=== PATIENT | male | born 1985 | race Caucasian/White ===

== ENCOUNTER 2017-05-30 14:24 | Emergency (ER) | payer OTHER ==
[~2017-05-30] VITALS: Ht 185.4 cm; Wt 84.0 kg
[2017-05-30 14:27] VITALS: TEMP 36.7; Ht 185.4 cm; Wt 84.0 kg
[2017-05-30] MEDS ORDERED: OXYC1TAB3 PO (14:50)
[2017-05-30] MEDS ORDERED: ACET-1256 PO (14:50)
[2017-05-30] MEDS ORDERED: OXYCODONE HCL IR 5 MG TAB (IMMEDIATE RELEASE) PO STA (14:55)
--- NOTE | 2017-05-30 15:03 | EMERGENCY ROOM VISIT NOTE ---
ED Visit Note First contact with patient: 14:46 CHIEF COMPLAINT: Foot pain HISTORY OF PRESENT ILLNESS: This 31-year-old male patient presents to the emergency department ambulatory complaining of swelling and pain in the right foot at rest and worse with weight bearing. The patient states that he accidentally dropped a 95 pounds cinderblock on his right foot just prior to arrival while at home. The patient rates the pain as severe and 10/10. The patient has no relief of the pain. The patient is not able to walk. No numbness or weakness. No ankle pain. There are no lacerations of the foot. The patient is able to move all of their toes and their ankle without pain. Patient denies previous injury to this foot. REVIEW OF SYSTEMS: GENERAL: A 6 system review of systems was completed with positives and pertinent negatives in the HPI. ALLERGIES: Penicillin MEDICATIONS: Oxycodone as needed for back pain PMH: Back pain SOCIAL HISTORY: The patient is a smoker PHYSICAL EXAM: Vital Signs: Reviewed Nurse's notes, vital signs stable. GENERAL : Is a 31-year-old male, in no acute distress, but appears in pain, well- developed, well-nourished. MUSCULOSKELETAL: There is no visual deformity of the right foot. There is minimal erythema but no ecchymosis. There is no warmth. There is tenderness and swelling over the dorsum of the right foot. The range of motion of the foot is moderately limited secondary to pain. There is no tenderness over the plantar fascia. Dorsi flexion 5/5 and Plantar flexion 5/5. The skin is intact and there are no lacerations or puncture wounds. Dorsalis pedis pulse 2+. Capillary refill less than 2 seconds. There is no ecchymosis, edema, erythema to the ankle but he does have diffuse severe tenderness over the entire ankle. EMERGENCY DEPARTMENT COURSE: I examined the patient. An X-ray of the left foot and ankle were reviewed by myself and radiology and reveals likely old avulsion from the talus but no obvious acute fracture. The patient's examination seems to be out of proportion to complaint. The patient is rolling around the bed complaining of pain. There is some redness to the dorsum of the foot but the patient has also had ice on it and it is cool to the touch. I'm not certain if the redness is secondary to the injury or from the ice pack. I recommended anti-inflammatories for the contusion. He patient states that the anti-inflammatories will not help. He was given 1 oxycodone in the emergency department. The patient requests oxycodone to get him through until June 14. He states that he takes oxycodone for his chronic back pain. He states he took his last pill yesterday. I advised the patient that we cannot prescribe narcotics for his chronic pain. I did review the prescription drug monitoring website. The patient has been regularly filling oxycodone and last filled it on May 20 day supply. I did discuss the case with the patient's family doctor, Dr. Valentin, who stated the patient missed an appointment with him yesterday. I advised him that I could give him a take-home pack of pain medication for the foot contusion but I did not feel comfortable prescribing him narcotics for a longer period of time. I did recommend that he follow up with orthopedics and potentially go to the walk-in clinic in the evening for further evaluation and management. He should return to the ER with any worsening symptoms. The case was discussed with Dr. Riojas who agrees with the assessment and treatment plan. The patient was discharged home in good condition. RIGHT ANKLE 4 VIEWS CLINICAL HISTORY: Right ankle pain. FINDINGS: 4 views of the right ankle are obtained. No prior studies are available for comparison at the time of dictation. The skeletal structures are well mineralized. There is an age-indeterminate but chronic appearing avulsion fracture seen along the lateral aspect of the talus. Overlying soft tissue edema is identified. No acute fracture is seen. The ankle mortise is intact. No joint effusion is identified. IMPRESSION: 1. No acute bony abnormality is identified in the right ankle. 2. Suspect a chronic avulsion fracture on the lateral aspect of the talus. There is no overlying soft tissue edema. R FOOT MIN 3 VIEWS ROUTINE CLINICAL HISTORY: Right foot pain status post trauma COMPARISON: None. DISCUSSION: No acute fractures or dislocations are visualized. There is no evidence for soft tissue swelling. IMPRESSION: No acute fractures or dislocations identified. Current/Historical Medications Scheduled PRN Acetaminophen (Tylenol), 1,000 MG PO DIRECTED PRN for Pain or Fever Oxycodone Ir (Roxicodone Ir), 5 MG PO Q8 PRN for Pain Allergies Coded Allergies: Penicillins (Verified Allergy, Unknown, CHILDHOOD ALLERGY, 05/30/17) Vital Signs Date Time Temp Pulse Resp B/P (MAP) Pulse Ox O2 Delivery O2 Flow Rate FiO2 05/30/17 16:34 80 16 132/65 99 05/30/17 14:27 36.7 90 17 118/71 96 Room Air Medications Administered Medications (Trade) Dose Ordered Sig/Reyes Route Start Time Stop Time Status Last Admin Dose Admin Oxycodone HCl (Roxicodone Immediate Rel Tab) 5 mg NOW STAT PO 05/30/17 14:55 05/30/17 14:56 DC 05/30/17 15:28 5 MG Departure Information Impression Primary Impression: Contusion of foot Dispostion Home / Self-Care Condition GOOD Referrals Joseph Craft M.D. (PCP) Jack Garcia M.D. Patient Instructions ED Contusion Foot, My [facility] Additional Instructions Motrin 600 mg every 6-8 hours or moderate pain Oxy IR 1-2 tablets every 4-6 hrs as needed for worse pain. No driving or alcohol use with Oxy IR. Follow-up with orthopedics. Contact their office for an appointment or try the walk-in hours in the evening. Wear the splint until seen by orthopedics. Return with any worsening symptoms. Follow up with your family doctor for continued management of your chronic back pain and pain medications as indicated Return with worsening symptoms Problem Qualifiers Primary Impression: Contusion of foot Encounter type: initial encounter
--- NOTE | 2017-05-30 15:29 | DIAGNOSTIC IMAGING REPORT ---
RIGHT ANKLE 4 VIEWS CLINICAL HISTORY: Right ankle pain. FINDINGS: 4 views of the right ankle are obtained. No prior studies are available for comparison at the time of dictation. The skeletal structures are well mineralized. There is an age-indeterminate but chronic appearing avulsion fracture seen along the lateral aspect of the talus. Overlying soft tissue edema is identified. No acute fracture is seen. The ankle mortise is intact. No joint effusion is identified. IMPRESSION: 1. No acute bony abnormality is identified in the right ankle. 2. Suspect a chronic avulsion fracture on the lateral aspect of the talus. There is no overlying soft tissue edema. Electronically signed by: Sam Kimble M.D. 05/30/2017 3:28 PM Dictated Date/Time: 05/30/2017 3:27 PM
--- NOTE | 2017-05-30 15:35 | DIAGNOSTIC IMAGING REPORT ---
R FOOT MIN 3 VIEWS ROUTINE CLINICAL HISTORY: Right foot pain status post trauma COMPARISON: None. DISCUSSION: No acute fractures or dislocations are visualized. There is no evidence for soft tissue swelling. IMPRESSION: No acute fractures or dislocations identified. Electronically signed by: Daren Green M.D. 05/30/2017 3:33 PM Dictated Date/Time: 05/30/2017 3:33 PM
[2017-05-30] MEDS ORDERED: OXYCODONE IR HOME PACK PO ONE (16:30)
[2017-05-30 16:34] VITALS: BP 132/65; PULSE 80; O2SAT 99
== END 2017-05-30 16:36 | disposition home or self-care (01) ==
LOC: C.EDB 14:26 → C.EDD 16:36
DX: S90.31XA Contusion of right foot, initial encounter (principal); W20.8XXA Other cause of strike by thrown, projected or falling object, initial encounter; Y92.009 Unspecified place in unspecified non-institutional (private) residence as the place of occurrence of the external cause; M54.9 Dorsalgia, unspecified; Z79.899 Other long term (current) drug therapy; G89.29 Other chronic pain; F17.210 Nicotine dependence, cigarettes, uncomplicated

== ENCOUNTER 2017-10-15 13:56 | Emergency (ER) | payer SELFPAY ==
[~2017-10-15] VITALS: Ht 185.4 cm; Wt 75.9 kg
[~2017-10-15 13:56] MED LIST: ACET-1256 PO; OXYC1TAB3 PO
[2017-10-15 14:02] VITALS: Ht 185.4 cm; Wt 75.9 kg
[2017-10-15 15:15] VITALS: O2SAT 99
[2017-10-15] MEDS ORDERED: MoRPHine SULFATE 10 MG/ML CARP/VIAL IV STA (15:18)
[2017-10-15] MEDS ORDERED: ONDANSETRON INJ 2 MG/ML 2 ML VIAL IV STA (15:18)
--- NOTE | 2017-10-15 15:26 | EMERGENCY ROOM VISIT NOTE ---
History Report prepared by Duane: Héctor De Leon Under the Supervision of: Dr. Casey Alonzo M.D. First contact with patient: 15:03 Chief Complaint: CHEST PAIN Stated Complaint: CHEST PAIN,LIGHT HEADED,BACK PAIN,SEIZURES,NUMB RANDOLPH Nursing Triage Summary: Pt reports, "I passed out on New Years. I've passed out a couple times in the past couple days. My whole head hurts down my spine. I have pain in my chest. I am shaky. I'm dizzy all the time. I was told I had a seizure." History of Present Illness The patient is a 31 year old male who presents to the Emergency Room with complaints of left-sided chest pain that began several weeks ago. He rates his pain a 6/10 in severity. He has a past medical history of 2 ruptured discs or which he is currently following up with orthopedics. Over this time, the patient has been experiencing intermittent episodes of syncope associated with lightheadedness and tingling to his bilateral hands/arms. He states that he passed out multiple times over the past couple of days. For the past three days , he has been experiencing a posterior headache with some posterior neck pain that radiates down his entire spine. He states that his headache and neck pain worsen with movement of his head. The only medication that he is on currently is Oxycodone for his ruptured discs. He denies any fevers. Source of History: patient Onset: several weeks ago Position: chest (left) Symptom Intensity: 6/10 Quality: sharp Associated Symptoms: + LOC, + headache, + neck pain, No fevers Note: He experiencing intermittent numbness and tingling to his fingers/arms bilaterally. Review of Systems See HPI for pertinent positives & negatives. A total of 10 systems reviewed and were otherwise negative. Past Medical & Surgical Medical Problems: (1) Intervertebral disc rupture Family History Diabetes mellitus Unable to obtain half from mother secondary to an adoption in his family. Social History Smoking Status: Current Every Day Smoker Smokeless Tobacco Use: No Marital Status: in relationship Housing Status: unknown Occupation Status: employed Current/Historical Medications Scheduled PRN Oxycodone HCl (Oxycodone HCl), 5 MG PO Q8 PRN for Pain Allergies Coded Allergies: Penicillins (Verified Allergy, Unknown, CHILDHOOD ALLERGY, 10/15/17) Physical Exam Vital Signs Date Time Temp Pulse Resp B/P (MAP) Pulse Ox O2 Delivery O2 Flow Rate FiO2 10/15/17 18:18 78 112/76 97 Room Air 10/15/17 16:44 36.8 71 18 108/70 97 Room Air 10/15/17 15:24 80 10/15/17 15:15 99 Room Air 10/15/17 15:15 99 Room Air 10/15/17 15:11 99 Room Air 10/15/17 15:09 80 119/78 87 135/93 10/15/17 14:02 36.5 109 18 129/97 97 Room Air Physical Exam GENERAL: Patient is a healthy-appearing well-nourished male, hyperventilating on exam. HEAD: Normocephalic atraumatic EYES: Ocular movements intact pupils equal and react to light OROPHARYNX mucous membranes are moist no exudates present no erythema or edema present NECK: Supple no nuchal rigidity CHEST: Good equal expansion LUNGS: Clear and equal to auscultation CARDIAC: Normal S1 and S2 ABDOMEN: Soft nontender no guarding BACK: No CVA tenderness EXTREMITIES: No pain upon palpation normal muscle strength in all groups no clubbing cyanosis or edema NEURO: Patient is following commands and answering questions appropriately. Alert and oriented x3 Cranial Nerves 2-12 grossly intact Medical Decision & Procedures ER Provider Diagnostic Interpretation: Radiology results as stated below per my review and radiologist interpretation: CHEST ONE VIEW PORTABLE CLINICAL HISTORY: Atypical chest pain. Seizures. COMPARISON STUDY: 11/11/2015 FINDINGS: The cardiac and mediastinal contours are normal. There is no evidence of focal pulmonary consolidation. There is no evidence of failure. No pleural effusions are visualized.[ There are old left-sided rib fractures. IMPRESSION: No active disease in the chest. Electronically signed by: Daren rGeen M.D. 10/15/2017 3:37 PM Dictated Date/Time: 10/15/2017 3:[address] HEAD WITHOUT CONTRAST (CT) CLINICAL HISTORY: Syncope COMPARISON STUDY: No previous studies for comparison. TECHNIQUE: Axial CT of the brain is performed from the vertex to the skull base. IV contrast was not administered for this examination. A dose lowering technique was utilized adhering to the principles of ALARA. CT DOSE: FINDINGS: No intra or extra-axial mass lesions are visualized. There is no CT evidence of acute cortical infarction. There is no evidence of midline shift. There is no acute hemorrhage. No calvarial fractures are visualized. There is no evidence of pathologic ventricular dilatation. There is no evidence of acute sinusitis IMPRESSION: Normal noncontrast head CT. Electronically signed by: Daren Green M.D. 10/15/2017 4:40 PM Dictated Date/Time: 10/15/2017 4:39 PM (CHEST FOR PE) ANGIO WITH CT DOSE: 1013.79 mGy.cm HISTORY: 31 years-old Male presents with acute atypical chest pain TECHNIQUE: Multiple CTA images of the chest were obtained after the intravenous administration of 92 ml Optiray 320. Coronal and sagittal MIPS were obtained from the axial data set and were submitted for review. A dose lowering technique was utilized adhering to the principles of ALARA. COMPARISON: Portal chest radiograph 10/15/2017. FINDINGS: CTA: Heart is normal in size without pericardial effusion. The thoracic aorta is normal in both course and caliber without aneurysm or dissection. The imaged great vessels appear to be patent. The descending thoracic aorta is not well opacified. The pulmonary arterial tree is opacified to level of the segmental branches. The subsegmental branches at the level of the lung bases are obscured secondary to respiratory motion. No filling defects identified to suggest pulmonary thromboembolic disease. CT CHEST: No dominant thyroid nodule. Mild residual thymic tissue of the anterior mediastinum. No pathologic adenopathy by CT size criteria. No pleural effusion or pneumothorax. 4 mm solid noncalcified pleural-based nodule of the apical segment right upper lobe is seen on image 289 series 6. There are a few additional scattered solid nodules measuring up to 4 mm with probable perifissural lymph node seen adjacent to the left upper lobe measuring 3 mm on image 262 series 6. Mild dependent subsegmental bibasilar atelectasis. The central airways are patent. No lobar airspace consolidation to suggest pneumonia. No acute abnormality of the imaged upper abdomen. Bones of the chest appear intact. IMPRESSION: 1. Mildly motion degraded exam without acute intrathoracic abnormality identified, specifically no acute aortic pathology or evidence of pulmonary thromboembolic disease. 2. No lobar airspace consolidation to suggest pneumonia. 3. Several scattered noncalcified pulmonary nodules are seen within the bilateral lungs measuring up to 4 mm, likely benign in a patient of this age group. Please refer to below summary of Fleischner criteria recommendations for follow-up of incidental CT nodules (H Tang, Guidelines for management of small pulmonary nodules detected on CT scans: A statement from the Fleischner Society, Radiology 237: [phone].) SOLID NODULES Multiple nodules size: <6 mm * Low risk patients: no routine follow-up * high risk patients: optional CT at 12 months Note: newly detected indeterminate nodule in persons 35 years of age or older. * Low risk patients: minimal or absent history of smoking and/or other known risk factors * high risk patients: history of smoking or of other known risk factors (e.g. first degree relative with lung cancer, or exposure to asbestos, radon, uranium) * if a nodule up to 8 mm is partly solid or is ground glass further follow-up is required after 24 months to exclude possible slow growing adenocarcinoma (STEVE) The above report was generated using voice recognition software. It may contain grammatical, syntax or spelling errors. Electronically signed by: Cedric Ford M.D. 10/15/2017 4:49 PM Dictated Date/Time: 10/15/2017 4:40 PM Laboratory Results 10/15/17 15:20 Red Blood Count 5.51, Mean Corpuscular Volume 89.1, Mean Corpuscular Hemoglobin 31.2, Mean Corpuscular Hemoglobin Concent 35.0, Mean Platelet Volume 10.5, Neutrophils (%) (Auto) 67.2, Lymphocytes (%) (Auto) 25.6, Monocytes (%) (Auto) 5.6, Eosinophils (%) (Auto) 0.8, Basophils (%) (Auto) 0.5, Neutrophils # (Auto) 8.06, Lymphocytes # (Auto) 3.07, Monocytes # (Auto) 0.67, Eosinophils # (Auto) 0.09, Basophils # (Auto) 0.06 10/15/17 15:20 Test 10/15/17 15:20 10/15/17 15:22 White Blood Count 11.98 K/uL (4.8-10.8) Red Blood Count 5.51 M/uL (4.7-6.1) Hemoglobin 17.2 g/dL (14.0-18.0) Hematocrit 49.1 % (42-52) Mean Corpuscular Volume 89.1 fL (80-100) Mean Corpuscular Hemoglobin 31.2 pg (25-34) Mean Corpuscular Hemoglobin Concent 35.0 g/dl (32-36) Platelet Count 308 K/uL (130-400) Mean Platelet Volume 10.5 fL (7.4-10.4) Neutrophils (%) (Auto) 67.2 % Lymphocytes (%) (Auto) 25.6 % Monocytes (%) (Auto) 5.6 % Eosinophils (%) (Auto) 0.8 % Basophils (%) (Auto) 0.5 % Neutrophils # (Auto) 8.06 K/uL (1.4-6.5) Lymphocytes # (Auto) 3.07 K/uL (1.2-3.4) Monocytes # (Auto) 0.67 K/uL (0.11-0.59) Eosinophils # (Auto) 0.09 K/uL (0-0.5) Basophils # (Auto) 0.06 K/uL (0-0.2) RDW Standard Deviation 41.1 fL (36.4-46.3) RDW Coefficient of Variation 12.6 % (11.5-14.5) Immature Granulocyte % (Auto) 0.3 % Immature Granulocyte # (Auto) 0.03 K/uL (0.00-0.02) Anion Gap 5.0 mmol/L (3-11) Est Creatinine Clear Calc Drug Dose 101.7 ml/min Estimated GFR () 100.2 Estimated GFR (Non- 86.5 BUN/Creatinine Ratio 12.6 (10-20) Calcium Level 9.0 mg/dl (8.5-10.1) Total Bilirubin 0.7 mg/dl (0.2-1) Direct Bilirubin 0.2 mg/dl (0-0.2) Aspartate Amino Transf (AST/SGOT) 11 U/L (15-37) Alanine Aminotransferase (ALT/SGPT) 22 U/L (12-78) Alkaline Phosphatase 76 U/L (45-117) Total Creatine Kinase 84 U/L (39-308) Creatine Kinase MB 1.2 ng/ml (0.5-3.6) Creatine Kinase MB Ratio 1.4 (0-3.0) Troponin I < 0.015 ng/ml (0-0.045) Total Protein 7.9 gm/dl (6.4-8.2) Albumin 4.2 gm/dl (3.4-5.0) Lipase 70 U/L (73-393) Lyme Disease IgG Antibody NEG (NEG) Lyme Disease IgM Antibody NEG (NEG) Monoscreen NEG (NEG) Influenza Type A Antigen Neg for Influ A (NEG) Influenza Type B Antigen Neg for Influ B (NEG) Labs reviewed by ED physician. Medications Administered Medications (Trade) Dose Ordered Sig/Reyes Route Start Time Stop Time Status Last Admin Dose Admin Ondansetron HCl (Zofran Inj) 4 mg NOW STAT IV 10/15/17 15:18 10/15/17 15:20 DC 10/15/17 16:18 4 MG Morphine Sulfate (MoRPHine SULFATE INJ) 8 mg STK-MED ONCE .ROUTE 10/15/17 16:13 10/15/17 16:14 DC 10/15/17 16:18 8 MG Sodium Chloride 1,000 ml @ 999 mls/hr Q1H1M STAT IV 10/15/17 17:13 10/15/17 18:13 DC 10/15/17 17:26 999 MLS/HR Albuterol (Ventolin Hfa Inhaler) 2 puffs NOW STAT INH 10/15/17 17:13 10/15/17 17:14 DC 10/15/17 17:25 2 PUFFS ECG Indication: chest pain Rate (beats per minute): 80 Rhythm: normal sinus Findings: no acute ischemic change, no ectopy Change: Patient's electrocardiogram per my interpretation. ED Course 1503: Past medical records reviewed. The patient was evaluated in room A12. A complete history and physical examination was performed. 1518: Ordered Zofran Inj 4 mg IV, Morphine Sulfate 8 mg IV 1613: Ordered Albuterol 2 puffs INH, Sodium Chloride 1000 ml @ 999 mls/hr IV 1730: Upon reexamination the patient is resting. I discussed results and treatment plan with the patient. He verbalizes agreement and understanding. The patient is ready for discharge. Medical Decision Differential diagnosis: Etiologies such as cardiac ischemia, aortic dissection, pulmonary embolism, pneumonia, pneumothorax, musculoskeletal, infections, pericarditis, myocarditis , esophageal rupture, gastrointestinal, as well as others were entertained. This is a 31-year-old male who presents emergency Department with a number of complaints that have been ongoing since September 09. I will note that the patient describes bilateral numbness and tingling to his extremities then moves to his head. The patient then passes out. Expressed concern that this may be hyperventilation however the patient does not feel that it is this. I conducted a full workup here in emergency department he was given an EKG as well as CK-MB troponin which were all found to be normal. The patient does not have an elevation in his white blood count cell count, his Lyme test is negative. His flu test is also negative. He was sent for CAT scan of the chest which does not show any acute process. Do feel based on these findings at the patient is safe enough to be discharged home. I recommended the patient follow-up with cardiology. Patient and significant other were in agreement with the treatment plan. Medication Reconcilliation Current Medication List: was personally reviewed by me Blood Pressure Screening Patient's blood pressure: Normal blood pressure Blood pressure disposition: Did not require urgent referral Impression Primary Impression: Vasovagal episode Additional Impression: Chest pain Scribe Attestation The scribe's documentation has been prepared under my direction and personally reviewed by me in its entirety. I confirm that the note above accurately reflects all work, treatment, procedures, and medical decision making performed by me. Departure Information Dispostion Home / Self-Care Referrals Joseph Craft M.D. (PCP) Forms Call Back Authorization, HOME CARE DOCUMENTATION FORM, IMPORTANT VISIT INFORMATION, School Instructions, Work Instructions Patient Instructions Chest Pain - [facility], ED Syncope Vasovagal, My [facility] Additional Instructions Follow up with Dr Bishop's office Increase fluids next 48 hours Follow up with DR Todd's (cardiology) office this week Follow up with Dr Bishop's office (Neuro) You have been examined and treated today on an emergency basis only. This is not a substitute for, or an effort to provide, complete comprehensive medical care. It is impossible to recognize and treat all injuries or illnesses in a single emergency department visit. It is therefore important that you follow up closely with Dr Craft. Call as soon as possible for an appointment. Thank you for your time and consideration. I look forward to speaking with you again soon. Please don't hesitate to call us if you have any questions. Problem Qualifiers Additional Impression: Chest pain Chest pain type: unspecified Qualified Codes: R07.9 - Chest pain, unspecified
[2017-10-15] MEDS ORDERED: OPTIRAY 320 IV PRN (15:30)
[2017-10-15 15:37] LABS: BASO % 0.5 %; BASO ABS # 0.06 K/uL (0-0.2); EOS % 0.8 %; EOS ABS # 0.09 K/uL (0-0.5); HEMATOCRIT 49.1 % (42-52); HEMOGLOBIN 17.2 g/dL (14.0-18.0); IG# 0.03 K/uL (0.00-0.02); LYMPH % 25.6 %; LYMPH ABS # 3.07 K/uL (1.2-3.4); MEAN CELL VOLUME 89.1 fL (80-100); MEAN CORPUSCULAR HEMOGLOBIN 31.2 pg (25-34); MEAN PLATELET VOLUME 10.5 fL (7.4-10.4); MONO % 5.6 %; MONO ABS # 0.67 K/uL (0.11-0.59); NEUT % 67.2 %; NEUT ABS # 8.06 K/uL (1.4-6.5); PLATELET COUNT 308 K/uL (130-400); RED CELL DISTRIBUTION WIDTH CV 12.6 % (11.5-14.5); RED CELL DISTRIBUTION WIDTH SD 41.1 fL (36.4-46.3); WHITE BLOOD COUNT 11.98 K/uL (4.8-10.8)
--- NOTE | 2017-10-15 15:39 | DIAGNOSTIC IMAGING REPORT ---
CHEST ONE VIEW PORTABLE CLINICAL HISTORY: Atypical chest pain. Seizures. COMPARISON STUDY: 11/11/2015 FINDINGS: The cardiac and mediastinal contours are normal. There is no evidence of focal pulmonary consolidation. There is no evidence of failure. No pleural effusions are visualized.[ There are old left-sided rib fractures. IMPRESSION: No active disease in the chest. Electronically signed by: Daren Green M.D. 10/15/2017 3:37 PM Dictated Date/Time: 10/15/2017 3:37 PM
[2017-10-15 15:57] LABS: INFLUENZA B ANTIGEN Neg for Influ B (NEG)
[2017-10-15 16:01] LABS: ALBUMIN 4.2 gm/dl (3.4-5.0); ALT/SGPT 22 U/L (12-78); AST/SGOT 11 U/L (15-37); BLOOD UREA NITROGEN 14 mg/dl (7-18); CARBON DIOXIDE 28 mmol/L (21-32); CREATININE 1.12 mg/dl (0.60-1.40); GLUCOSE 92 mg/dl (70-99); LIPASE 70 U/L (73-393); SODIUM 137 mmol/L (136-145)
[2017-10-15] MEDS ORDERED: OXYC-609 PO (16:01)
[2017-10-15 16:06] LABS: ALKALINE PHOSPHATASE 76 U/L (45-117); CKMB 1.2 ng/ml (0.5-3.6); TOTAL PROTEIN 7.9 gm/dl (6.4-8.2)
[2017-10-15 16:13] LABS: MONOSPOT NEG (NEG)
[2017-10-15] MEDS ORDERED: MoRPHine SULFATE 4 MG/ML 1 ML CARP\\VIAL ONE (16:13)
--- NOTE | 2017-10-15 16:41 | DIAGNOSTIC IMAGING REPORT ---
CT HEAD WITHOUT CONTRAST (CT) CLINICAL HISTORY: Syncope COMPARISON STUDY: No previous studies for comparison. TECHNIQUE: Axial CT of the brain is performed from the vertex to the skull base. IV contrast was not administered for this examination. A dose lowering technique was utilized adhering to the principles of ALARA. CT DOSE: FINDINGS: No intra or extra-axial mass lesions are visualized. There is no CT evidence of acute cortical infarction. There is no evidence of midline shift. There is no acute hemorrhage. No calvarial fractures are visualized. There is no evidence of pathologic ventricular dilatation. There is no evidence of acute sinusitis IMPRESSION: Normal noncontrast head CT. Electronically signed by: Daren Green M.D. 10/15/2017 4:40 PM Dictated Date/Time: 10/15/2017 4:39 PM
[2017-10-15 16:44] VITALS: TEMP 36.8
--- NOTE | 2017-10-15 16:50 | DIAGNOSTIC IMAGING REPORT ---
(CHEST FOR PE) ANGIO WITH CT DOSE: 1013.79 mGy.cm HISTORY: 31 years-old Male presents with acute atypical chest pain TECHNIQUE: Multiple CTA images of the chest were obtained after the intravenous administration of 92 ml Optiray 320. Coronal and sagittal MIPS were obtained from the axial data set and were submitted for review. A dose lowering technique was utilized adhering to the principles of ALARA. COMPARISON: [facility] chest radiograph 10/15/2017. FINDINGS: CTA: Heart is normal in size without pericardial effusion. The thoracic aorta is normal in both course and caliber without aneurysm or dissection. The imaged great vessels appear to be patent. The descending thoracic aorta is not well opacified. The pulmonary arterial tree is opacified to level of the segmental branches. The subsegmental branches at the level of the lung bases are obscured secondary to respiratory motion. No filling defects identified to suggest pulmonary thromboembolic disease. CT CHEST: No dominant thyroid nodule. Mild residual thymic tissue of the anterior mediastinum. No pathologic adenopathy by CT size criteria. No pleural effusion or pneumothorax. 4 mm solid noncalcified pleural-based nodule of the apical segment right upper lobe is seen on image 289 series 6. There are a few additional scattered solid nodules measuring up to 4 mm with probable perifissural lymph node seen adjacent to the left upper lobe measuring 3 mm on image 262 series 6. Mild dependent subsegmental bibasilar atelectasis. The central airways are patent. No lobar airspace consolidation to suggest pneumonia. No acute abnormality of the imaged upper abdomen. Bones of the chest appear intact. IMPRESSION: 1. Mildly motion degraded exam without acute intrathoracic abnormality identified, specifically no acute aortic pathology or evidence of pulmonary thromboembolic disease. 2. No lobar airspace consolidation to suggest pneumonia. 3. Several scattered noncalcified pulmonary nodules are seen within the bilateral lungs measuring up to 4 mm, likely benign in a patient of this age group. Please refer to below summary of Fleischner criteria recommendations for follow-up of incidental CT nodules (Cheryl Beckwith, Guidelines for management of small pulmonary nodules detected on CT scans: A statement from the Fleischner Society, Radiology 237: [phone].) SOLID NODULES Multiple nodules size: <6 mm * Low risk patients: no routine follow-up * high risk patients: optional CT at 12 months Note: newly detected indeterminate nodule in persons 35 years of age or older. * Low risk patients: minimal or absent history of smoking and/or other known risk factors * high risk patients: history of smoking or of other known risk factors (e.g. first degree relative with lung cancer, or exposure to asbestos, radon, uranium) * if a nodule up to 8 mm is partly solid or is ground glass further follow-up is required after 24 months to exclude possible slow growing adenocarcinoma (STEVE) The above report was generated using voice recognition software. It may contain grammatical, syntax or spelling errors. Electronically signed by: Cedric Ford M.D. 10/15/2017 4:49 PM Dictated Date/Time: 10/15/2017 4:40 PM
[2017-10-15] MEDS ORDERED: SODIUM CHLORIDE 0.9% 1000ML 1,000 ML IV STA (17:13)
[2017-10-15] MEDS ORDERED: ALBUTEROL HFA 8 GM INHALER INH STA (17:13)
[2017-10-15 18:18] VITALS: BP 112/76; PULSE 78; O2SAT 97
[2017-10-17 13:24] LABS: EBV EARLY ANTIGEN AB < 9.00 U/ML
== END 2017-10-15 18:34 | disposition home or self-care (01) ==
LOC: C.EDB 13:58 → C.EDA 18:34
DX: R55 Syncope and collapse (principal); R07.89 Other chest pain; R42 Dizziness and giddiness; R20.0 Anesthesia of skin; R51 Headache; M54.2 Cervicalgia; F17.200 Nicotine dependence, unspecified, uncomplicated; Z83.3 Family history of diabetes mellitus